=== PATIENT | female | born 1970 | race Caucasian/White ===

== ENCOUNTER → 2017-06-29 | Outpatient (CLI) | payer BC ==
--- NOTE | 2017-07-04 07:13 | MM ---
Reason for exam: screening (asymptomatic). Last mammogram was performed 1 year ago. History: Family history of breast cancer in maternal grandmother. Benign excisional biopsy of the right breast, 1989. Took hormonal contraceptives for 18 years beginning at age 21. Physical Findings: A clinical breast exam by your physician is recommended on an annual basis and results should be correlated with mammographic findings. MG 3D Screening Mammo W/Cad Bilateral CC and MLO view(s) were taken. Prior study comparison: June 23, 2016, left breast MG work up mamm w CAD LT. June 21, 2016, bilateral MG screening mammo w CAD. The breast tissue is heterogeneously dense. This may lower the sensitivity of mammography. No significant changes when compared with prior studies. ASSESSMENT: Benign, BI-RAD 2 RECOMMENDATION: Routine screening mammogram of both breasts in 1 year.
== END | disposition home or self-care (01) ==
LOC: RADMAMWWP 08:49
PROVIDERS: ATTEND Obstetrics & Gynecology
DX: Z12.31 Encounter for screening mammogram for malignant neoplasm of breast (principal); Z80.3 Family history of malignant neoplasm of breast
CPT/HCPCS: 77063; G0202

== ENCOUNTER → 2018-06-21 | Outpatient (CLI) | payer BC ==
--- NOTE | 2018-06-21 16:05 | ECHOS ---
STRESS ECHOCARDIOGRAM DATE OF SERVICE: 06/21/2018 INDICATIONS: Short of breath. MEDICATIONS: BASELINE HEART RATE: 87 BASELINE BLOOD PRESSURE: 157/37 MAXIMUM HEART RATE: 166 MAXIMUM BLOOD PRESSURE: 174/77 85% MPHR: 145 100% MPHR: 171 METS: 8.5 MAXIMUM STAGE REACHED: III TOTAL EXERCISE TIME: 7 minutes 15 seconds CLINICAL INFORMATION: Baseline rhythm sinus mechanism, rate of 87. Normal axis and intervals, poor R progression. Baseline blood pressure 157/37 mmHg. Patient exercised on Som protocol for 7 minute 15 seconds reaching a peak rate 166 beats per minute which is equal to 97% maximum predicted heart rate. Peak blood pressure 174/77 mmHg. Test was terminated secondary to fatigue. There was no chest pain. Electrocardiograph monitoring revealed a 0.[address]-segment depression that resolved in recovery. Baseline echocardiogram revealed normal wall motion. At peak exercise, there was normal wall motion augmentation with no hypokinesis or dyskinesis. CONCLUSION: 1. Average exercise tolerance with a borderline positive electrocardiograph stress testing. 2. Normal stress echocardiogram with no evidence of stress induced ischemia. MMODL / IJN: [id number] / [facility]
== END | disposition home or self-care (01) ==
LOC: RADNMMAIN 10:31
PROVIDERS: ATTEND Internal Medicine Geriatric Medicine
DX: R06.02 Shortness of breath (principal)
CPT/HCPCS: 93351

== ENCOUNTER → 2018-07-15 | Outpatient (CLI) | payer BC ==
--- NOTE | 2018-07-17 09:36 | MM ---
Reason for exam: screening (asymptomatic). Last mammogram was performed 1 year and 1 month ago. History: Family history of breast cancer in maternal grandmother. Benign excisional biopsy of the right breast, 1989. Took hormonal contraceptives for 18 years beginning at age 21. Physical Findings: A clinical breast exam by your physician is recommended on an annual basis and results should be correlated with mammographic findings. MG 3D Screening Mammo W/Cad Bilateral CC and MLO view(s) were taken. Prior study comparison: June 29, 2017, bilateral MG 3d screening mammo w/cad. June 23, 2016, left breast MG work up mamm w CAD LT. The breast tissue is heterogeneously dense. This may lower the sensitivity of mammography. There is chronic nodularity in the right breast made more apparent on 3D. No significant changes when compared with prior studies. ASSESSMENT: Benign, BI-RAD 2 RECOMMENDATION: Routine screening mammogram of both breasts in 1 year.
== END | disposition home or self-care (01) ==
LOC: RADMAMWWP 16:53
PROVIDERS: ATTEND Obstetrics & Gynecology
DX: Z12.31 Encounter for screening mammogram for malignant neoplasm of breast (principal); Z80.3 Family history of malignant neoplasm of breast
CPT/HCPCS: 77063; 77067

== ENCOUNTER → 2019-07-24 | Outpatient (CLI) | payer BC ==
--- NOTE | 2019-07-28 10:34 | MM ---
Reason for exam: screening (asymptomatic). Last mammogram was performed 1 year ago. History: Family history of breast cancer in maternal grandmother. Benign excisional biopsy of the right breast, 1989. Took hormonal contraceptives for 18 years beginning at age 21. Physical Findings: A clinical breast exam by your physician is recommended on an annual basis and results should be correlated with mammographic findings. MG 3D Screening Mammo W/Cad Bilateral CC and MLO view(s) were taken. Prior study comparison: July 15, 2018, bilateral MG 3d screening mammo w/cad. June 29, 2017, bilateral MG 3d screening mammo w/cad. Finding: There are intermediate concern, suspicious coarse heterogeneous, linear calcifications in the lower inner quadrant, middle position of the left breast. New finding since June 29, 2017. ASSESSMENT: Incomplete: need additional imaging evaluation, BI-RAD 0 RECOMMENDATION: Special view mammogram of the left breast. [facility] will attempt to contact patient to return for supplemental views.
== END | disposition home or self-care (01) ==
LOC: RADMAMWWP 16:54
PROVIDERS: ATTEND Obstetrics & Gynecology
DX: Z12.31 Encounter for screening mammogram for malignant neoplasm of breast (principal); Z80.3 Family history of malignant neoplasm of breast
CPT/HCPCS: 77063; 77067

== ENCOUNTER → 2019-07-30 | Outpatient (CLI) | payer BC ==
--- NOTE | 2019-07-30 10:06 | MM ---
Reason for exam: additional evaluation requested from abnormal screening. Last mammogram was performed less than 1 month ago. History: Family history of breast cancer in maternal grandmother at age 50. Benign excisional biopsy of the right breast, 1989. Took hormonal contraceptives for 18 years beginning at age 21. Physical Findings: Nurse did not find any significant physical abnormalities on exam. MG 3D Work Up W/Cad LT CC with magnification, ML with magnification, and ML view(s) were taken of the left breast. Prior study comparison: July 24, 2019, bilateral MG 3d screening mammo w/cad. July 15, 2018, bilateral MG 3d screening mammo w/cad. There are indeterminate calcifications lower inner left breast, biopsy recommended. These results were verbally communicated with the patient and result sheet given to the patient on 07/30/19. ASSESSMENT: Suspicious, BI-RAD 4 RECOMMENDATION: Stereotactic core biopsy of the left breast. Called Dr. Marks with mammographic findings and has scheduled an appointment for the patient for 08/13/19 at 12:[address] Posey. Biopsy scheduled for 08/22/19. PRELIMINARY REPORT CALLED AND FAXED TO DR. POSEY ON 07/30/19.
== END | disposition home or self-care (01) ==
LOC: RADMAMWWP 08:47
PROVIDERS: ATTEND Obstetrics & Gynecology
DX: R92.8 Other abnormal and inconclusive findings on diagnostic imaging of breast (principal)
CPT/HCPCS: 77061; 77065

== ENCOUNTER → 2019-08-13 | Outpatient (CLI) | payer BC ==
[2019-08-13 13:08] VITALS: BP 128/88; PULSE 95; RESP 18; TEMP 98.2; BMI 32.9
--- NOTE | 2019-08-13 13:34 | P.GSHP ---
History of Present Illness H&P Date: 08/13/19 Chief Complaint: Left breast microcalcifications Ambika is a 49-year-old white female who presents for breast evaluation. She had a bilateral mammogram performed on . This revealed an area of concern in the left breast and additional views were obtained. On additional views were obtained and these revealed indeterminate calcifications lower inner left breast for which biopsy was recommended. The patient states that she does not note any masses or nodules in her breast. She denies any nipple discharge or skin changes. She has not had any trauma or infection in the breast. She did have a formal right breast biopsy many years ago and aspiration of one of her breast and she is not sure which one. Family History: maternal grandmother: breast cancer in 50's paternal grandfather: throat cancer father: skin cancer Hormonal History: menarche: 12 , breast fed: none, first born at 28 menopause: hysterectomy at 41 BCP: 20 years hormones: none Past surgical history: 1. Partial hysterectomy for prolapsed uterus 2. gallbladder Medical history: 1. Asthma Social history: Smoke: Negative Alcohol: Occasional Drugs: Negative - Constitutional Constitutional: Denies chills, Denies fever - EENT Eyes: denies blurred vision, denies pain Ears: deny: decreased hearing, tinnitus Ears, nose, mouth and throat: Denies headache, Denies sore throat - Breasts Breasts: bilateral: as per HPI - Cardiovascular Cardiovascular: Reports shortness of breath, Denies chest pain - Respiratory Comment: asthma - Gastrointestinal Gastrointestinal: Denies abdominal pain, Denies diarrhea, Denies nausea, Denies vomiting - Genitourinary (Female) Genitourinary: Denies dysuria, Denies hematuria - Menstruation Menstruation: Reports post hysterectomy - Musculoskeletal Comment: arthritis - Integumentary Integumentary: Denies pruritus, Denies rash - Neurological Neurological: Denies numbness, Denies weakness - Psychiatric Psychiatric: Reports anxiety - Endocrine Endocrine: Denies fatigue, Denies weight change - Hematologic/Lymphatic Comment: none - Allergic/Immunologic Allergic/Immunologic: Reports seasonal allergies Past Medical History Past Medical History: Asthma Additional Past Medical History / Comment(s): seasonal allergies History of Any Multi-Drug Resistant Organisms: None Reported Past Surgical History: Cholecystectomy, Hysterectomy Additional Past Surgical History / Comment(s): breast biopsy on right years ago, cyst aspiration Past Anesthesia/Blood Transfusion Reactions: Postoperative Nausea & Vomiting (PONV) Past Psychological History: Anxiety Smoking Status: Never smoker Past Alcohol Use History: None Reported Past Drug Use History: None Reported - Past Family History Father Family Medical History: No Reported History Mother Family Medical History: No Reported History Additional Family Medical History / Comment(s): Maternal grandmother: breast cancer Medications and Allergies Home Medications Medication Instructions Recorded Confirmed Type Albuterol Inhaler [Ventolin Hfa 1 - 2 puff INHALATION RT-Q6H PRN 08/05/19 08/13/19 History Inhaler] Calcium Carbonate [Calcium] 600 mg PO DAILY 08/05/19 08/13/19 History Montelukast Sodium [Singulair] 10 mg PO HS 08/05/19 08/13/19 History Multivitamins, Thera [Multivitamin 1 tab PO DAILY 08/05/19 08/13/19 History (formulary)] Allergies Allergy/AdvReac Type Severity Reaction Status Date / Time No Known Allergies Allergy Verified 08/13/19 13:00 Surgical - Exam Vital Signs Temp Pulse Resp BP Pulse Ox 98.2 F 95 18 128/88 98 08/13/19 13:03 08/13/19 13:03 08/13/19 13:03 08/13/19 13:03 08/13/19 13:03 BMI 32.9 - General well developed, well nourished, no distress - Eyes normal ocular movement - ENT no hearing loss, no congestion - Neck no masses, trachea midline - Respiratory normal respiratory effort, clear to auscultation - Cardiovascular Rhythm: regular Heart Sounds: normal: S1, S2 - Abdomen Abdomen: soft, non tender, no guarding, no rigid, no rebound - Integumentary normal turgor - Neurologic no disoriented, no combative - Musculoskeletal normal gait, normal posture - Psychiatric oriented to time, oriented to person, oriented to place, speech is normal, memory intact Breast exam: Right Breast: Well-healed scar from prior biopsy multiple positional exam no dominant masses or nodules of concern Right axilla: No adenopathy of concern Left breast: Multiple positional exam no dominant masses or nodules of concern Left axilla: No adenopathy of concern Results mammogram and ultrasound results reviewed Assessment and Plan Assessment: Impression: 1. Mammographic abnormality left breast 2. Fibrocystic breast changes 3. Family history of breast cancer 4. Family history of cancer 5. Asthma Plan: 1. Stereotactic core biopsy left breast 2. Follow-up with Dr. Lacey in 1 week after biopsy 3. Medical management of medical conditions Risks and benefits of the procedure been discussed with the patient. The patient understands and wishes to proceed. The patient expresses concern that she becomes very anxious around medical procedures and would like to have Xanax prior to the procedure. We will make sure that the radiologist understand this. Cc: Dr. Fernandes
== END | disposition home or self-care (01) ==
LOC: WWCWWP 12:23
PROVIDERS: ATTEND Surgery
DX: Z53.9 Procedure and treatment not carried out, unspecified reason (principal)

== ENCOUNTER → 2019-08-22 | Day surgery (SDC) | payer BC ==
[2019-08-22 07:24] VITALS: RESP 16; BMI 33.0
[2019-08-22 08:42] VITALS: BP 125/79; PULSE 70; TEMP 98.1
--- NOTE | 2019-08-22 09:43 | MM ---
EXAMINATION TYPE: MG stereo VAD BX LT DATE OF EXAM: 08/22/2019 COMPARISON: Prior mammogram July 30, 2019 and older mammogram. CLINICAL HISTORY: Abnormal mammogram. TECHNIQUE: Stereotactic guided core biopsy of left breast with clip placement and follow-up diagnostic two-view mammogram.. FINDINGS: The procedure of stereotactic guided core biopsy was explained to the patient. Benefits, alternatives, and risks were discussed. An informed consent was then obtained. The [facility] pathway for biopsy was chosen. Shortness pathway was medial approach. I performed the localization, then performed the remainder of the procedure. Overlying skin is cleansed with Betadine. Lidocaine is used as anesthetic into the skin and subcutaneous tissue. Lidocaine with epinephrine is used as anesthetic into the deeper tissue during sampling. A vacuum assisted biopsy gun was used to obtain multiple core samples. The patient tolerated the procedure well without any immediate complication. The patient was kept in the radiology department for short stay after the procedure and then discharged home in stable condition. Targeted calcifications are identified in specimen mammogram. Post biopsy mammogram shows the clip to appear in satisfactory position relative to the targeted area of concern on the preprocedure images. IMPRESSION: SUCCESSFUL, UNCOMPLICATED STEREOTACTIC GUIDED CORE BIOPSY OF AREA OF CONCERN IN THE LEFT BREAST, FULL PATHOLOGY RESULTS TO FOLLOW. Intermediate to high index of suspicion noted at time of procedure. 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 Recommendation Follow up mammogram of the left breast in 6 months. [facility]
== END ==
LOC: RADMAMWWP 07:03
PROVIDERS: ATTEND Surgery
DX: D24.2 Benign neoplasm of left breast (principal)
CPT/HCPCS: 88305; 19081; A4648; J2001

== ENCOUNTER → 2019-08-29 | Outpatient (CLI) | payer BC ==
[2019-08-29 07:51] VITALS: BP 111/77; PULSE 75; RESP 18; TEMP 97.7; BMI 32.7
--- NOTE | 2019-08-29 08:32 | P.PN ---
Subjective Progress Note Date: 08/29/19 Principal diagnosis: results of stero biopsy Ambika is a 49 year-old white female status post stereotactic core biopsy of an area of microcalcification in the left breast. This was performed on 102 [id number]. Pathology results revealed fibroadenomatoid hyperplasia with prominent intraductal minimal pulsations. The radiology report stated that the area was moderate to high suspicion in the area was reviewed with Dr. Muñoz from radiology. It was felt that all the microcalcifications had been largely removed and that the area had been adequately sampled. Therefore it is felt that the biopsy is concordant. The patient has no complaints related to the procedure. She did develop some mild bruising at the site. Objective - Vital Signs Vital signs: Vital Signs Temp 97.7 F 08/29/19 07:49 Pulse 75 08/29/19 07:49 Resp 18 08/29/19 07:49 BP 111/77 08/29/19 07:49 Pulse Ox 99 08/29/19 07:49 Intake & Output 08/28/19 08/29/19 08/29/19 18:59 06:59 18:59 Weight 81.193 kg - Exam BMI 32.7 - Constitutional General appearance: Present: obese - EENT Eyes: Present: EOMI ENT: Present: hearing grossly normal - Neck Neck: Present: normal ROM - Respiratory Respiratory: bilateral: CTA - Cardiovascular Rhythm: regular Heart sounds: normal: S1, S2 - Integumentary Integumentary Comment(s): Left breast: Mild ecchymosis at core biopsy site No evidence of any infection No evidence of intraparenchymal hematoma Integumentary: Present: normal turgor Assessment and Plan Assessment: Impression: 1. Status post left breast are detected core biopsy, pathology fibroadenomatoid hyperplasia with prominent intraductal mineralization's 2. Family history of breast cancer 3. Asthma Plan: 1. Repeat left breast mammogram in 6 months with physician exam at that time 2. Medical management of medical conditions 3. Patient to follow up sooner if any questions or concerns The pathology results of been discussed with the patient. This is a benign lesion. The reason for repeating the mammogram in 6 months is secondary to a new baseline after the biopsy has been performed. Cc: Dr. Marks
== END ==
LOC: WWCWWP 07:35
PROVIDERS: ATTEND Surgery
DX: Z53.9 Procedure and treatment not carried out, unspecified reason (principal)

== ENCOUNTER → 2020-07-27 | Outpatient (CLI) | payer BC ==
--- NOTE | 2020-07-28 07:59 | MM ---
Reason for exam: follow-up at short interval from prior study. Last mammogram was performed 1 year ago. History: Family history of breast cancer in maternal grandmother at age 50 and breast cancer in maternal aunt at age 80. Benign MG stereo VAD BX LT of the left breast, August 22, 2019. Benign excisional biopsy of the right breast, 1989. Took hormonal contraceptives for 18 years beginning at age 21. Physical Findings: Nurse did not find any significant physical abnormalities on exam. MG 3D Diag Mammo W/Cad ANGELICA Bilateral CC and MLO view(s) were taken. Spot compression MLO, spot compression CC, and ML view(s) were taken of the right breast. Prior study comparison: July 30, 2019, left breast MG 3d work up w/cad LT. July 24, 2019, bilateral MG 3d screening mammo w/cad. The breast tissue is heterogeneously dense. This may lower the sensitivity of mammography. Finding #1: There is a 8 mm obscured oval mass in the subareolar position of the right breast. Finding #2: There are typically benign calcifications in the left breast. Previous mammotome biopsy in the left breast. These results were verbally communicated with the patient and result sheet given to the patient on 07/27/20. ASSESSMENT: Incomplete: need additional imaging evaluation, BI-RAD 0 RECOMMENDATION: Ultrasound of the right breast.
--- NOTE | 2020-07-28 08:02 | USB ---
Reason for exam: additional evaluation requested from abnormal screening. History: Family history of breast cancer in maternal grandmother at age 50 and breast cancer in maternal aunt at age 80. Benign MG stereo VAD BX LT of the left breast, August 22, 2019. Benign excisional biopsy of the right breast, 1989. Took hormonal contraceptives for 18 years beginning at age 21. US Breast Limited RT Right limited breast ultrasound including focal area of concern, retroareolar and axilla demonstrates a 0.4 x 0.3 x 0.5cm lesion too small to characterize at 2 o'clock. These results were verbally communicated with the patient and result sheet given to the patient on 07/27/20. ASSESSMENT: Probably benign, BI-RAD 3 RECOMMENDATION: Follow-up diagnostic mammogram and ultrasound of the right breast in 6 months.
== END | disposition home or self-care (01) ==
LOC: RADMAMWWP 14:09
PROVIDERS: ATTEND Surgery
DX: R92.8 Other abnormal and inconclusive findings on diagnostic imaging of breast (principal)
CPT/HCPCS: 77062; 77066

== ENCOUNTER → 2020-07-27 | Outpatient (CLI) | payer BC ==
--- NOTE | 2020-07-29 08:16 | BD ---
EXAMINATION TYPE: Axial Bone Density DATE OF EXAM: 07/27/2020 COMPARISON: NONE CLINICAL HISTORY: Height: 62 IN Weight: 187 LBS FRAX RISK QUESTIONS: Family History (Parent hip fracture): MOTHER Secondary Osteoporosis: 3. Menopause before 45: PARTIAL HYST AGE 40 RISK FACTORS HISTORY OF: Family History of Osteoporosis: MOTHER Active: YES Postmenopausal woman: PARTIAL HYST AGE 40 How long: CONTROL PREVIOUSLY FOR 18 YEARS MEDICATIONS: Additional Medications: CALCIUM, VIT D, SINGULAIR EXAM MEASUREMENTS: Bone mineral densitometry was performed using the ACTV8 System. Bone mineral density as measured about the Lumbar spine is: ----- L1-L4(G/cm2): 1.412 T Score Values are as follows: ----- L2: 1.1 ----- L3: 2.5 ----- L4: 1.7 ----- L1-L4: 1.9 Bone mineral density BASELINE Bone mineral density about the R hip (g/cm2): 0.944 Bone mineral density about the L hip (g/cm2): 0.930 T Score values are as follows: -----R Neck: -0.7 -----L Neck: -0.8 -----R Total: -0.5 -----L Total: -0.2 Bone mineral density BASELINE IMPRESSION: No evidence for osteoporosis are osteopenia. NOTE: T-SCORE=SD OF THE YOUNG ADULT MEAN.
== END | disposition home or self-care (01) ==
LOC: RADBDWWP 14:13
PROVIDERS: ATTEND Obstetrics & Gynecology
DX: N95.1 Menopausal and female climacteric states (principal)
CPT/HCPCS: 77080

== ENCOUNTER → 2020-07-30 | Outpatient (CLI) | payer BC ==
[2020-07-30 16:22] VITALS: BP 122/82; PULSE 59; RESP 12; TEMP 97.8
--- NOTE | 2020-07-30 16:32 | P.PN ---
Subjective Progress Note Date: 07/30/20 Principal diagnosis: abnormal right breast mammogram Ambika is a 49-year-old white female who presents for breast evaluation. [place] [id number]. This revealed an area of concern in the left breast and additional views were obtained. On additional views were obtained and these revealed indeterminate calcifications lower inner left breast for which biopsy was recommended. She had a stereotactic core biopsy performed on [id number] this revealed fibroadenomatoid hyperplasia with prominent intraductal mineralization's. This was reviewed with Dr. Muñoz from radiology and felt to be concordant. The patient states that she does not note any masses or nodules in her breast. She denies any nipple discharge or skin changes. She has not had any trauma or infection in the breast. She did have a formal right breast biopsy many years ago and aspiration of one of her breast and she is not sure which one. She had a bilateral mammogram performed earlier this week, and states she was told she needed a repeat right breast mammogram in 6 months. This was done on , this was reviewed and was a 3D bilateral mammogram. She will have a repeat right breast mammogram and ultrasound in 6 months time. Family History: maternal grandmother: breast cancer in 50's paternal grandfather: throat cancer father: skin cancer Hormonal History: menarche: 12 , breast fed: none, first born at 28 menopause: hysterectomy at 41 BCP: 20 years hormones: none Past surgical history: 1. Partial hysterectomy for prolapsed uterus 2. gallbladder Medical history: 1. Asthma Social history: Smoke: Negative Alcohol: Occasional Drugs: Negative - Constitutional Constitutional: Denies chills, Denies fever - EENT Eyes: denies blurred vision, denies pain Ears: deny: decreased hearing, tinnitus Ears, nose, mouth and throat: Denies headache, Denies sore throat - Breasts Breasts: bilateral: as per HPI - Cardiovascular Cardiovascular: Reports shortness of breath, Denies chest pain - Respiratory Comment: asthma - Gastrointestinal Gastrointestinal: Denies abdominal pain, Denies diarrhea, Denies nausea, Denies vomiting - Genitourinary (Female) Genitourinary: Denies dysuria, Denies hematuria - Menstruation Menstruation: Reports post hysterectomy - Musculoskeletal Comment: arthritis - Integumentary Integumentary: Denies pruritus, Denies rash - Neurological Neurological: Denies numbness, Denies weakness - Psychiatric Psychiatric: Reports normal anxiety related to covid - Endocrine Endocrine: Denies fatigue, Denies weight change - Hematologic/Lymphatic Comment: none - Allergic/Immunologic Allergic/Immunologic: Reports seasonal allergies Objective - Vital Signs Vital signs: Intake & Output 07/29/20 07/30/20 07/30/20 18:59 06:59 18:59 Weight 81.193 kg - Exam BMI 32.7 - Constitutional General appearance: Present: average body habitus - EENT Eyes: Present: EOMI ENT: Present: hearing grossly normal - Neck Neck: Present: normal ROM - Respiratory Respiratory: bilateral: CTA - Cardiovascular Rhythm: regular Heart sounds: normal: S1, S2 - Gastrointestinal General gastrointestinal: Present: normal bowel sounds, soft - Integumentary Integumentary: Present: normal turgor - Musculoskeletal Musculoskeletal: Present: gait normal - Psychiatric Psychiatric: Present: A&O x's 3, appropriate affect, intact judgment & insight - Additional findings Additional findings: breast exam: BRA: 38C inspection: grade 2 ptosis bilateral palpation: right breast: Multiple positional exam fibrocystic changes, no dominant masses or nodules of concern Right axilla: No adenopathy of concern Left breast: Multi-positional exam no dominant masses or nodules of concern Left axilla: No adenopathy of concern Assessment and Plan Assessment: Impression: 1. Fibrocystic breast changes 2. Right breast abnormality on mammogram and ultrasound Plan: 1. Repeat right breast mammogram and ultrasound in 6 months with physician exam at that time Cc: Dr. Mitchell, Dr. Marks encounter 15 minutes, > 50% of time in planning and counselling Time with Patient: Less than 30
== END | disposition home or self-care (01) ==
LOC: WWCWWP 15:33
PROVIDERS: ATTEND Surgery
DX: Z53.9 Procedure and treatment not carried out, unspecified reason (principal)

== ENCOUNTER → 2021-02-09 | Outpatient (CLI) | payer BC ==
--- NOTE | 2021-02-10 09:58 | MM ---
Reason for exam: additional evaluation requested from prior study. Last mammogram was performed 6 months ago. History: Family history of breast cancer in maternal grandmother at age 50 and breast cancer in maternal aunt at age 80. Benign MG stereo VAD BX LT of the left breast, August 22, 2019. Benign excisional biopsy of the right breast, 1989. Took hormonal contraceptives for 18 years beginning at age 21. Physical Findings: Nurse did not find any significant physical abnormalities on exam. MG 3D Diag Mammo W/Cad RT CC and MLO view(s) were taken of the right breast. Prior study comparison: July 27, 2020, bilateral MG 3d diag mammo w/cad ANGELICA. July 30, 2019, left breast MG 3d work up w/cad LT. The breast tissue is heterogeneously dense. This may lower the sensitivity of mammography. No significant new findings when compared with previous films. These results were verbally communicated with the patient and result sheet given to the patient on 02/09/21. ASSESSMENT: Benign, BI-RAD 2 RECOMMENDATION: Routine screening mammogram of both breasts in 6 months. Back on schedule.
--- NOTE | 2021-02-10 10:00 | USB ---
Reason for exam: follow-up at short interval from prior study. History: Family history of breast cancer in maternal grandmother at age 50 and breast cancer in maternal aunt at age 80. Benign MG stereo VAD BX LT of the left breast, August 22, 2019. Benign excisional biopsy of the right breast, 1989. Took hormonal contraceptives for 18 years beginning at age 21. US Breast Limited RT Right limited breast ultrasound including focal area of concern, retroareolar and axilla demonstrates no cystic or solid lesion seen. These results were verbally communicated with the patient and result sheet given to the patient on 02/09/21. ASSESSMENT: Negative, BI-RAD 1 RECOMMENDATION: Routine screening mammogram of both breasts in 6 months. Back on schedule.
== END | disposition home or self-care (01) ==
LOC: RADMAMWWP 14:24
PROVIDERS: ATTEND Surgery
DX: R92.8 Other abnormal and inconclusive findings on diagnostic imaging of breast (principal); Z80.3 Family history of malignant neoplasm of breast
CPT/HCPCS: 77061; 77065

== ENCOUNTER 2021-02-25 10:23 | Day surgery (SDC) | payer BC ==
[2021-02-22 11:48] VITALS: BMI 33.8
[~2021-02-25 10:23] MED LIST: ACETAMINOPHEN TAB 500 MG TAB PO PRN; DEXAMETHASONE SOD PHOSPHATE 4 MG/ML 1 ML VIAL IV ONE; HEPARIN SODIUM,PORCINE/PF 5,000 UNIT/0.5 ML SYRINGE SQ PRN; HYDROmorphone 0.5 MG/0.5 ML SYRINGE IVP PRN; LACTATED RINGERS 1,000 ML IV SCH; MIDAZOLAM 2 MG/2 ML VIAL IV PRN; ONDANSETRON 4 MG/2 ML VIAL IVP ONE; Pre Op ABX Message 1 EACH MISC MISCELLANE ONE
[2021-02-25 10:57] VITALS: TEMP 97.8
--- NOTE | 2021-02-25 12:20 | P.GSHP ---
History of Present Illness H&P Date: 02/25/21 Chief Complaint: scalp cysts 50-year-old female seen in the office previously. Patient here today for excision multiple scalp cysts. Patient has a total of 4 cysts that she has identified. Mild pain at times. No drainage. Past Medical History Past Medical History: Asthma Additional Past Medical History / Comment(s): seasonal allergies History of Any Multi-Drug Resistant Organisms: None Reported Past Surgical History: Cholecystectomy, Hysterectomy Additional Past Surgical History / Comment(s): right breast biopsy on , breast c yst aspiration Past Anesthesia/Blood Transfusion Reactions: Postoperative Nausea & Vomiting (PONV) Smoking Status: Never smoker - Past Family History Father Family Medical History: Cancer Additional Family Medical History / Comment(s): skin cancer Mother Family Medical History: No Reported History Additional Family Medical History / Comment(s): Maternal grandmother: breast cancer Medications and Allergies Home Medications Medication Instructions Recorded Confirmed Type Albuterol Inhaler (Mhu) [Ventolin 1 - 2 puff INHALATION RT-Q6H PRN 08/05/19 02/22/21 History Hfa Inhaler] Calcium Carbonate [Calcium] 600 mg PO DAILY 08/05/19 02/22/21 History Montelukast Sodium [Singulair] 10 mg PO HS 08/05/19 02/22/21 History Multivitamins, Thera [Multivitamin 1 tab PO DAILY 08/05/19 02/22/21 History (formulary)] Ascorbic Acid [Vitamin C] 500 mg PO DAILY 02/22/21 02/22/21 History Cholecalciferol [Vitamin D3 (25 25 mcg PO DAILY 02/22/21 02/22/21 History Mcg = 1000 Iu)] Cyanocobalamin (Vitamin B-12) 1,000 mcg PO DAILY 02/22/21 02/22/21 History [Vitamin B-12] Allergies Allergy/AdvReac Type Severity Reaction Status Date / Time bee venom protein (honey bee) Allergy Swelling Verified 02/22/21 11:09 Surgical - Exam Vital Signs Temp Pulse Resp BP Pulse Ox 97.8 F 78 18 172/90 98 02/25/21 10:56 02/25/21 10:56 02/25/21 10:56 02/25/21 10:56 02/25/21 10:56 Physical exam: General: Well-developed, well-nourished HEENT: Normocephalic, sclerae nonicteric 4 separate scalp cysts ranging in size from 1-1.5 cm Abdomen: Nontender, nondistended Extremities: No edema Neuro: Alert and oriented Assessment and Plan (1) Pilar cysts Narrative/Plan: We'll proceed with surgical excision at this time. Current Visit: Yes Status: Acute Code(s): L72.11 - PILAR CYST SNOMED Code(s): 809963092
[2021-02-25] MEDS ORDERED: MIDAZOLAM 2 MG/2 ML VIAL ONE (12:39)
[2021-02-25] MEDS ORDERED: PROPOFOL 10 MG/ML 20 ML VIAL IV ONE (12:39)
[2021-02-25] MEDS ORDERED: fentaNYL (PF) 50 MCG/ML 2 ML AMP ONE (12:39)
[2021-02-25] MEDS ORDERED: KETAMINE 10 MG/ML 20 ML VIAL ONE (12:39)
[2021-02-25] MEDS ORDERED: BUPIVACAIN-EPI 0.5%-1:200,000 30 ML VIAL SQ ONE ×2 (13:00)
[2021-02-25] MEDS ORDERED: HYDROcodone/APAP 5-325MG 1 EACH TAB PO PRN (13:26)
[2021-02-25] MEDS ORDERED: NALOXONE 0.4 MG/ML 1 ML VIAL IV PRN (13:26)
--- NOTE | 2021-02-25 13:29 | P.OP ---
Date of Procedure: 02/25/21 Procedure(s) Performed: PREOPERATIVE DIAGNOSIS: Multiple pilar cysts POSTOPERATIVE DIAGNOSIS: Same PROCEDURE: Excision multiple pilar cysts SURGEON: Robert EBL: 10 mL ANESTHESIA: Local plus sedation COMPLICATIONS: None OPERATIVE PROCEDURE: Patient placed in the operative table in the left decubitus position. The scalp was prepped with Betadine at the pilar cyst sites. The patient had a total of 4 cysts. 3 of them measured 1 cm in size and the largest was 1.5 cm in size. Each were excised using a linear incision overlying the palpable cyst and blunt dissection was used to excise the cyst. This incision site was closed using interrupted 4-0 nylon sutures. 3 of the cysts were along the midline with the largest one being in the parieto-occipital region, an additional 1 cm cyst was present in the right parietal location. DISPOSITION: Stable to recovery room
[2021-02-25 13:43] VITALS: RESP 16
[2021-02-25 13:51] VITALS: BP 119/76; PULSE 100
== END 2021-02-25 14:06 | disposition home or self-care (01) ==
LOC: OR 10:23
PROVIDERS: ATTEND Surgery
DX: L72.11 Pilar cyst (principal); J45.909 Unspecified asthma, uncomplicated; J30.2 Other seasonal allergic rhinitis; Z98.890 Other specified postprocedural states; Z90.49 Acquired absence of other specified parts of digestive tract; Z90.710 Acquired absence of both cervix and uterus; Z80.8 Family history of malignant neoplasm of other organs or systems; Z80.3 Family history of malignant neoplasm of breast; Z79.899 Other long term (current) drug therapy; Z91.030 Bee allergy status
CPT/HCPCS: 88304; 11421; 11422; J2250; J1100; J2405; J3010; J2704; J1644

== ENCOUNTER → 2021-03-04 | Outpatient (CLI) | payer BC ==
[2021-03-04 15:46] VITALS: BP 113/79; PULSE 97; RESP 16; TEMP 97.8
--- NOTE | 2021-03-04 16:13 | P.PN ---
Subjective Progress Note Date: 03/04/21 Principal diagnosis: fibro-cystic breast changes Ambika is a 50-year-old white female who was seen for for breast evaluation on 08-07-20. [place] [address]. This revealed an area of concern in the left breast and additional views were obtained. On additional views were obtained and these revealed indeterminate calcifications lower inner left breast for which biopsy was recommended. 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 This was reviewed with Dr. Muñoz from radiology and felt to be concordant. The patient states that she does not note any masses or nodules in her breast. She denies any nipple discharge or skin changes. She has not had any trauma or infection in the breast. She did have a formal right breast biopsy many years ago and aspiration of one of her breast and she is not sure which one. She had a bilateral mammogram performed earlier this week, and states she was told she needed a repeat right breast mammogram in 6 months. This was done on , this was reviewed and was a 3D bilateral mammogram. She will have a repeat right breast mammogram and ultrasound in 6 months time. Repeat right breast mammogram was done on 02-09-21. This was felt to be benign BIRAD 2, an ultrasound was done on the same day and was BIRAD 1. Is not complaining of any new lumps masses or nodules in either breast today. She is not complaining of any nipple discharge or skin changes of concern. Family History: maternal grandmother: breast cancer in 50's paternal grandfather: throat cancer father: skin cancer Hormonal History: menarche: 12 , breast fed: none, first born at 28 menopause: hysterectomy at 41 BCP: 20 years hormones: none Past surgical history: 1. Partial hysterectomy for prolapsed uterus 2. gallbladder 3. scalp lesions removed Medical history: 1. Asthma Social history: Smoke: Negative Alcohol: Occasional Drugs: Negative - Constitutional Constitutional: Denies chills, Denies fever - EENT Eyes: denies blurred vision, denies pain Ears: deny: decreased hearing, tinnitus Ears, nose, mouth and throat: Denies headache, Denies sore throat - Breasts Breasts: bilateral: as per HPI - Cardiovascular Cardiovascular: Reports shortness of breath, Denies chest pain - Respiratory Comment: asthma - Gastrointestinal Gastrointestinal: Denies abdominal pain, Denies diarrhea, Denies nausea, Denies vomiting - Genitourinary (Female) Genitourinary: Denies dysuria, Denies hematuria - Menstruation Menstruation: Reports post hysterectomy - Musculoskeletal Comment: arthritis - Integumentary Integumentary: Denies pruritus, Denies rash - Neurological Neurological: Denies numbness, Denies weakness - Psychiatric Psychiatric: Reports normal anxiety related to covid - Endocrine Endocrine: Denies fatigue, Denies weight change - Hematologic/Lymphatic Comment: none - Allergic/Immunologic Allergic/Immunologic: Reports seasonal allergies Objective - Vital Signs Vital signs: Vital Signs Temp 97.8 F 03/04/21 15:38 Pulse 97 03/04/21 15:38 Resp 16 03/04/21 15:38 BP 113/79 03/04/21 15:38 Pulse Ox 98 03/04/21 15:38 Intake & Output 03/03/21 03/04/21 03/04/21 18:59 06:59 18:59 Weight 83.915 kg - Exam BMI 33.8 - Constitutional General appearance: Present: average body habitus - EENT Eyes: Present: EOMI ENT: Present: hearing grossly normal - Neck Neck: Present: normal ROM - Respiratory Respiratory: bilateral: CTA - Cardiovascular Rhythm: regular Heart sounds: normal: S1, S2 - Integumentary Integumentary: Present: normal turgor - Musculoskeletal Musculoskeletal: Present: gait normal - Psychiatric Psychiatric: Present: A&O x's 3, appropriate affect, intact judgment & insight - Additional findings Additional findings: Breast exam: BRA: 38C inspection: Right breast slightly smaller than the left, well-healed scar from prior biopsy Palpation: Right breast: Positional exam no dominant masses or nodules of concern Right axilla: No adenopathy of concern Left breast: Multi-positional exam fibrocystic changes no dominant masses or nodules of concern Left axilla: No adenopathy of concern Assessment and Plan Assessment: Impression: 1. Fibrocystic breast changes 2. [place] [id number] benign BIRADS 2 for mammogram and BIRADS 1 for ultrasound 3. Asthma Plan: 1. Close surveillance repeat bilateral mammogram in 6 months with physician exam at that time Encounter 20 minutes, time spent in physical examination, reviewing test results, and counseling. Cc: Dr. Fernandes,
== END ==
LOC: WWCWWP 15:29
PROVIDERS: ATTEND Surgery
DX: N60.12 Diffuse cystic mastopathy of left breast (principal); J45.909 Unspecified asthma, uncomplicated; Z80.3 Family history of malignant neoplasm of breast

== ENCOUNTER → 2021-08-16 | Outpatient (CLI) | payer BC ==
--- NOTE | 2021-08-17 09:04 | MM ---
Reason for exam: screening (asymptomatic). Last mammogram was performed 6 months ago. History: Patient is postmenopausal. Family history of breast cancer in maternal grandmother at age 50 and breast cancer in maternal aunt at age 80. Benign MG stereo VAD BX LT of the left breast, August 22, 2019. Benign excisional biopsy of the right breast, 1989. Took hormonal contraceptives for 18 years beginning at age 21. Physical Findings: A clinical breast exam by your physician is recommended on an annual basis and results should be correlated with mammographic findings. MG 3D Screening Mammo W/Cad Bilateral CC and MLO view(s) were taken. Prior study comparison: February 09, 2021, right breast MG 3d diag mammo w/cad RT. July 27, 2020, bilateral MG 3d diag mammo w/cad ANGELICA. The breast tissue is heterogeneously dense. This may lower the sensitivity of mammography. Stable benign calcifications. There is no discrete abnormality. No significant changes when compared with prior studies. ASSESSMENT: Benign, BI-RAD 2 RECOMMENDATION: Routine screening mammogram of both breasts in 1 year.
== END | disposition home or self-care (01) ==
LOC: RADMAMWWP 16:02
PROVIDERS: ATTEND Surgery
DX: Z12.31 Encounter for screening mammogram for malignant neoplasm of breast (principal)
CPT/HCPCS: 77063; 77067

== ENCOUNTER → 2021-08-19 | Outpatient (CLI) | payer BC ==
[2021-08-19 15:42] VITALS: BP 133/84; PULSE 85; RESP 18; TEMP 97.8
--- NOTE | 2021-08-19 15:58 | P.PN ---
Subjective Progress Note Date: 08/19/21 Principal diagnosis: fibrocystic breast disease fibro-cystic breast changes Ambika underwent a stereotactic core biopsy on [id number] of the left breast which was benign, she also had a benign excisional biopsy of the right breast in 1989. She had a bilateral mammogram on 08-16-21 which was Benign BIRAD 2. He does not have any new lumps masses or nodules of concern in either breast. Family History: maternal grandmother: breast cancer in 50's paternal grandfather: throat cancer father: skin cancer Hormonal History: menarche: 12 , breast fed: none, first born at 28 menopause: hysterectomy at 41 BCP: 20 years hormones: none Past surgical history: 1. Partial hysterectomy for prolapsed uterus 2. gallbladder 3. scalp lesions removed Medical history: 1. Asthma 2. high cholesterol Social history: Smoke: Negative Alcohol: Occasional Drugs: Negative - Constitutional Constitutional: Denies chills, Denies fever - EENT Eyes: denies blurred vision, denies pain Ears: deny: decreased hearing, tinnitus Ears, nose, mouth and throat: Denies headache, Denies sore throat - Breasts Breasts: bilateral: as per HPI - Cardiovascular Cardiovascular: Reports shortness of breath, Denies chest pain - Respiratory Comment: asthma - Gastrointestinal Gastrointestinal: Denies abdominal pain, Denies diarrhea, Denies nausea, Denies vomiting - Genitourinary (Female) Genitourinary: Denies dysuria, Denies hematuria - Menstruation Menstruation: Reports post hysterectomy - Musculoskeletal Comment: arthritis - Integumentary Integumentary: Denies pruritus, Denies rash - Neurological Neurological: Denies numbness, Denies weakness - Psychiatric Psychiatric: Reports normal anxiety related to covid - Endocrine Endocrine: Denies fatigue, Denies weight change - Hematologic/Lymphatic Comment: none - Allergic/Immunologic Allergic/Immunologic: Reports seasonal allergies Objective - Vital Signs Vital signs: Vital Signs Temp 97.8 F 08/19/21 15:38 Pulse 85 08/19/21 15:38 Resp 18 08/19/21 15:38 BP 133/84 08/19/21 15:38 Pulse Ox 99 08/19/21 15:38 Intake & Output 08/18/21 08/19/21 08/19/21 18:59 06:59 18:59 Weight 82.554 kg - Exam BMI 33.3 - Constitutional General appearance: Present: cooperative - EENT Eyes: Present: EOMI ENT: Present: hearing grossly normal - Neck Neck: Present: normal ROM - Respiratory Respiratory: bilateral: CTA - Cardiovascular Rhythm: regular Heart sounds: normal: S1, S2 - Gastrointestinal General gastrointestinal: Present: soft - Integumentary Integumentary: Present: normal turgor - Musculoskeletal Musculoskeletal: Present: gait normal - Psychiatric Psychiatric: Present: A&O x's 3, appropriate affect, intact judgment & insight - Additional findings Additional findings: Breast Exam: BRA: 38C inspection: Bilateral grade 2/3 ptosis Palpation: Right breast: Multi-positional exam fibrocystic changes no dominant masses or nodules of concern Right axilla: No adenopathy of concern Left breast: Multi-positional exam fibrocystic changes no dominant masses or nodules of concern Left axilla: No adenopathy of concern Bilateral fungal infection under both breast Assessment and Plan Assessment: Impression: 1. Bilateral fibrocystic breast changes 2. Fungal infection under both breasts 3. Recent bilateral mammogram 08-16-21; BIRADS 2 Plan: 1. Await final report on mammogram from [id number] 2. If final report a mammogram is benign BIRADS 2 repeat bilateral mammogram in 1 year with physician exam at that time 3. Patient given a prescription for nystatin cream Cc: Dr. Mitchell, DR. Marks
== END | disposition home or self-care (01) ==
LOC: WWCWWP 15:32
PROVIDERS: ATTEND Surgery
DX: Z53.9 Procedure and treatment not carried out, unspecified reason (principal)

== ENCOUNTER → 2022-08-18 | Outpatient (CLI) | payer BC ==
--- NOTE | 2022-08-21 08:31 | MM ---
Reason for Exam: Screening (asymptomatic). Last screening mammogram was performed 12 month(s) ago. Patient History: Menarche at age 11. First Full-Term at age 28. Hysterectomy at age 40. Postmenopausal. Hormonal Contraceptives for 18 years from age 21 until age 39. 1989, Benign Excisional Biopsy on the right side. 08/22/2019, Benign Core Biopsy on the left side. Maternal grandmother had breast cancer, age 50. Maternal aunt had breast cancer, age 80. Risk Values: Justina 5 year model risk: 1.8%. NCI Lifetime model risk: 13.8%. Prior Study Comparison: 07/27/2020 Bilateral Diagnostic Mammogram, [facility]. 02/09/2021 Right Diagnostic Mammogram, [facility]. 08/16/2021 Bilateral Screening Mammogram, [facility]. Tissue Density: The breast tissue is heterogeneously dense. This may lower the sensitivity of mammography. Findings: Analyzed By CAD. There is no suspicious group of microcalcifications or new suspicious mass in either breast. Stable chronic nodularity. Overall Assessment: Benign, BI-RAD 2 Management: Screening Mammogram of both breasts in 1 year. A clinical breast exam by your physician is recommended on an annual basis and results should be correlated with mammographic findings. Electronically signed and approved by: Rob Wiley M.D. Radiologis
== END | disposition home or self-care (01) ==
LOC: RADMAMWWP 16:05
PROVIDERS: ATTEND Surgery
DX: Z12.31 Encounter for screening mammogram for malignant neoplasm of breast (principal)
CPT/HCPCS: 77063; 77067

== ENCOUNTER → 2022-09-07 | Outpatient (CLI) | payer BC ==
--- NOTE | 2022-09-07 16:24 | P.PN ---
Subjective Progress Note Date: 09/07/22 Principal diagnosis: fibrocystic breast changes fibro-cystic breast changes Ambika underwent a stereotactic core biopsy on [id number] of the left breast which was benign, she also had a benign excisional biopsy of the right breast in 1989. She had a bilateral mammogram on 08-19 which was Benign BIRAD 2. She does not have any new lumps masses or nodules of concern in either breast. Justina risk 1.8% in 5 years would discussed hormone prevention and she has declined. Family History: maternal grandmother: breast cancer in 50's paternal grandfather: throat cancer father: skin cancer Hormonal History: menarche: 12 , breast fed: none, first born at 28 menopause: hysterectomy at 41 BCP: 20 years hormones: none Past surgical history: 1. Partial hysterectomy for prolapsed uterus 2. gallbladder 3. scalp lesions removed Medical history: 1. Asthma 2. high cholesterol Social history: Smoke: Negative Alcohol: Occasional Drugs: Negative - Constitutional Constitutional: Denies chills, Denies fever - EENT Eyes: denies blurred vision, denies pain Ears: deny: decreased hearing, tinnitus Ears, nose, mouth and throat: Denies headache, Denies sore throat - Breasts Breasts: bilateral: as per HPI - Cardiovascular Cardiovascular: Reports shortness of breath, Denies chest pain - Respiratory Comment: asthma - Gastrointestinal Gastrointestinal: Denies abdominal pain, Denies diarrhea, Denies nausea, Denies vomiting - Genitourinary (Female) Genitourinary: Denies dysuria, Denies hematuria - Menstruation Menstruation: Reports post hysterectomy - Musculoskeletal Comment: arthritis - Integumentary Integumentary: Denies pruritus, Denies rash - Neurological Neurological: Denies numbness, Denies weakness - Psychiatric Psychiatric: Reports normal anxiety related to covid - Endocrine Endocrine: Denies fatigue, Denies weight change - Hematologic/Lymphatic Comment: none - Allergic/Immunologic Allergic/Immunologic: Reports seasonal allergies Objective - Vital Signs Vital signs: Intake & Output 09/06/22 09/07/22 09/07/22 18:59 06:59 18:59 Weight 81.647 kg - Constitutional General appearance: Present: cooperative - EENT Eyes: Present: EOMI ENT: Present: hearing grossly normal - Neck Neck: Present: normal ROM - Respiratory Respiratory: bilateral: CTA - Cardiovascular Rhythm: regular Heart sounds: normal: S1, S2 - Gastrointestinal General gastrointestinal: Present: soft - Integumentary Integumentary: Present: normal turgor - Musculoskeletal Musculoskeletal: Present: gait normal - Psychiatric Psychiatric: Present: A&O x's 3, appropriate affect, intact judgment & insight - Additional findings Additional findings: Breast Exam: BRA: 36C Inspection: A lateral grade 2 ptosis Palpation: Right breast: Multi-positional exam fibrocystic changes no dominant masses or nodules of concern Right axilla: No adenopathy of concern Left breast: Multi-positional exam fibrocystic changes no dominant masses or nodules of concern Left axilla: No adenopathy of concern Assessment and Plan Assessment: Impression: Fibrocystic breast changes Bilateral mammogram 08/18/2022 benign BIRADS 2 Plan: Bilateral mammogram in 1 year with physician exam at that time Patient has declined hormone prevention for Justina risk evaluation of 1.8% at 5 years CC: Dr. Mitchell
== END ==
LOC: WWCWWP 15:52
PROVIDERS: ATTEND Surgery
DX: Z53.9 Procedure and treatment not carried out, unspecified reason (principal)

== ENCOUNTER → 2023-08-20 | Outpatient (CLI) | payer BC ==
--- NOTE | 2023-08-23 07:55 | MM ---
Reason for Exam: Screening (asymptomatic). Last screening mammogram was performed 12 month(s) ago. Patient History: Menarche at age 11. First Full-Term at age 28. Hysterectomy at age 40. Postmenopausal. Hormonal Contraceptives for 18 years from age 21 until age 39. 1989, Benign Excisional Biopsy on the right side. 08/22/2019, Benign Core Biopsy on the left side. Maternal grandmother had breast cancer, age 50. Maternal aunt had breast cancer, age 80. Risk Values: Justina 5 year model risk: 1.9%. NCI Lifetime model risk: 13.6%. Prior Study Comparison: 02/09/2021 Right Diagnostic Mammogram, [facility]. 08/16/2021 Bilateral Screening Mammogram, [facility]. 08/18/2022 Bilateral MG 3D screening mammo w/cad, [facility]. Tissue Density: The breast tissue is heterogeneously dense. This may lower the sensitivity of mammography. Findings: Analyzed By CAD. There is no suspicious group of microcalcifications or new suspicious mass in either breast. Benign calcifications within both breasts. Stable chronic nodularity within the right breast. Overall Assessment: Benign, BI-RAD 2 Management: Screening Mammogram of both breasts in 1 year. A clinical breast exam by your physician is recommended on an annual basis and results should be correlated with mammographic findings. Note on Justina scores and lifetime risk: 1. A Justina score greater than 3% is considered moderate risk. If this is the case, consider specialist referral to assess eligibility for a risk reducing agent. If overall lifetime risk for the development of breast cancer is 20% or higher, the patient may qualify for future screening with alternating mammogram and breast MRI. Electronically signed and approved by: Iván Mckenzie D.O.
== END | disposition home or self-care (01) ==
LOC: RADMAMWWP 16:22
PROVIDERS: ATTEND Internal Medicine Geriatric Medicine
DX: Z12.31 Encounter for screening mammogram for malignant neoplasm of breast (principal); Z78.0 Asymptomatic menopausal state; Z80.3 Family history of malignant neoplasm of breast
CPT/HCPCS: 77063; 77067

== ENCOUNTER 2023-09-14 12:27 | Day surgery (SDC) | payer BC ==
[2023-09-12 12:55] VITALS: BMI 33.6
[~2023-09-14 12:27] MED LIST changes: -ACETAMINOPHEN TAB 500 MG TAB PO PRN; -DEXAMETHASONE SOD PHOSPHATE 4 MG/ML 1 ML VIAL IV ONE; -HEPARIN SODIUM,PORCINE/PF 5,000 UNIT/0.5 ML SYRINGE SQ PRN; -HYDROmorphone 0.5 MG/0.5 ML SYRINGE IVP PRN; +LIDOCAINE 1% (10MG/ML) FOR IV START INTRADERMA PRN; -MIDAZOLAM 2 MG/2 ML VIAL IV PRN; -ONDANSETRON 4 MG/2 ML VIAL IVP ONE; -Pre Op ABX Message 1 EACH MISC MISCELLANE ONE
[2023-09-14 14:02] VITALS: TEMP 98.1
[2023-09-14] MEDS: MIDAZOLAM 2 MG/2 ML VIAL IVP ONE ×2 (14:06→14:12)
[2023-09-14] MEDS ORDERED: PROPOFOL 10 MG/ML 20 ML VIAL IV ONE (15:00)
--- NOTE | 2023-09-14 15:15 | P.PCN ---
Date of Procedure: 09/14/23 Procedure(s) Performed: BRIEF HISTORY: Patient is a 53-year-old pleasant white female scheduled for an elective colonoscopy as a part of screening for colon cancer/positive cologuard. PROCEDURE PERFORMED: Colonoscopy with snare polyp rectum. PREOPERATIVE DIAGNOSIS: Screening for colon cancer/positive cologuard. IV sedation per Anesthesia. PROCEDURE: After informed consent was obtained, the patient, was brought into the endoscopy unit. IV sedation was administered by Anesthesia under continuous monitoring. Digital rectal examination was normal. Initially the Olympus CF-160 flexible video colonoscope was then inserted in the rectum, gradually advanced into the cecum without any difficulty. Careful examination was performed as the scope was gradually being withdrawn. Ileocecal valve and the appendiceal orifice were visualized and appeared normal. Prep was excellent. Mucosa of the cecum, ascending colon, appeared normal. In the transverse colon there was a 7 mm sessile polyp that was removed by cold snare polyp rectum he. Rest of the transverse colon, descending colon, sigmoid colon, and rectum appeared normal. Retroflexion was performed in the rectum and no lesions were seen. Scattered sigmoid diverticulosis were The patient tolerated the procedure well. IMPRESSION: 7 mm sessile transverse colon polyp status post snare polypectomy Scattered sigmoid diverticulosis RECOMMENDATIONS: Findings of this examination were discussed with the patient as well as her family. She was advised to follow with the biopsy does. If the biopsy result adenoma she can have a repeat colonoscopy in 5 years..
[2023-09-14 16:09] VITALS: BP 127/82; PULSE 82; RESP 20
== END 2023-09-14 15:49 | disposition home or self-care (01) ==
LOC: ORWHC2ENDO 12:27
PROVIDERS: ATTEND Internal Medicine Gastroenterology
DX: D12.3 Benign neoplasm of transverse colon (principal); K57.30 Diverticulosis of large intestine without perforation or abscess without bleeding; E78.5 Hyperlipidemia, unspecified; J45.909 Unspecified asthma, uncomplicated; F41.9 Anxiety disorder, unspecified; Z79.899 Other long term (current) drug therapy; Z79.51 Long term (current) use of inhaled steroids; Z90.49 Acquired absence of other specified parts of digestive tract
CPT/HCPCS: 88305; 45385; J2250; J2704